=== PATIENT | male | born 1995 | race African-American/Black ===

== ENCOUNTER 2016-05-12 16:37 | Emergency (ER) | payer OTHER ==
[~2016-05-12] VITALS: Ht 167.6 cm; Wt 65.7 kg
[2016-05-12 16:56] VITALS: Ht 167.6 cm; Wt 65.7 kg
[2016-05-12 18:13] LABS: BASO % 0.6 %; BASO ABS # 0.03 K/uL (0-0.2); COMPLETE YES; EOS % 7.6 %; HEMATOCRIT 46.7 % (42-52); IG% 0.2 %; LYMPH % 30.8 %; LYMPH ABS # 1.58 K/uL (1.2-3.4); MEAN CELL VOLUME 86.3 fL (80-100); MEAN CORPUSCULAR HEMOGLOBIN 28.3 pg (25-34); MEAN CORPUSCULAR HGB CONC 32.8 g/dl (32-36); MEAN PLATELET VOLUME 10.5 fL (7.4-10.4); MONO % 8.8 %; PLATELET COUNT 227 K/uL (130-400); RED BLOOD COUNT 5.41 M/uL (4.7-6.1); WHITE BLOOD COUNT 5.13 K/uL (4.8-10.8)
[2016-05-12 18:33] LABS: CREATININE 1.1 mg/dl (0.60-1.40)
[2016-05-12 18:34] LABS: BUN/CREATININE RATIO 17.7 (10-20); CALCIUM 9.3 mg/dl (8.5-10.1); POTASSIUM 4.2 mmol/L (3.5-5.1)
--- NOTE | 2016-05-12 19:03 | EMERGENCY ROOM VISIT NOTE ---
History Report prepared by Alexey: rBe Mujica Under the Supervision of: Dr. Roseann Melara M.D. First contact with patient: 17:19 Chief Complaint: ILLNESS Stated Complaint: HEAD AND BODY CHILLS History of Present Illness The patient is a 20 year old male who presents to the Emergency Room with complaints of persistent diffuse chills over the past few days. He notes that the chills start in his head and radiate through his entire body. He also complains of a slight pressure sensation towards the top of his head. When he touches the area, he develops the chills through his body a few seconds later. The patient reports that he had a runny nose last week, but it has since resolved. He denies any other illnesses. Source of History: patient Onset: a few days CASE COORDINATOR Position: other (global) Quality: other (chills) Timing: other (persistent) Modifying Factors (Worsening): other (touching head) Note: Other symptoms: pressure in head Review of Systems See HPI for pertinent positives & negatives. A total of 10 systems reviewed and were otherwise negative. Past Medical & Surgical Medical Problems: (1) No Known Active Medical Problems Family History No pertinent family history stated. Social History Smoking Status: Never Smoker Marital Status: single Occupation Status: [employer] student Current/Historical Medications No Active Prescriptions or Reported Meds Allergies Coded Allergies: No Known Allergies (Unverified , 05/12/16) Physical Exam Vital Signs Date Time Temp Pulse Resp B/P Pulse Ox O2 Delivery O2 Flow Rate FiO2 05/12/16 16:56 36.7 88 18 126/79 98 Room Air Physical Exam CONSTITUTIONAL: No acute distress. HEENT: No icterus, moist mucous membranes NECK: No meningismus, trachea is midline. CARDIOVASCULAR: Regular rate, normal perfusion RESPIRATORY: Unlabored breathing. Clear to auscultation. GASTROINTESTINAL: Non-tender GENITOURINARY: No flank tenderness MUSCULOSKELETAL: Full range of motion NEUROLOGIC: No acute gross focal deficits. PSYCHIATRIC: Normal affect SKIN: Normal for ethnicity. Medical Decision & Procedures Laboratory Results 05/12/16 17:45 Red Blood Count 5.41, Mean Corpuscular Volume 86.3, Mean Corpuscular Hemoglobin 28.3, Mean Corpuscular Hemoglobin Concent 32.8, Mean Platelet Volume 10.5, Neutrophils (%) (Auto) 52.0, Lymphocytes (%) (Auto) 30.8, Monocytes (%) (Auto) 8.8, Eosinophils (%) (Auto) 7.6, Basophils (%) (Auto) 0.6, Neutrophils # (Auto) 2.67, Lymphocytes # (Auto) 1.58, Monocytes # (Auto) 0.45, Eosinophils # (Auto) 0.39, Basophils # (Auto) 0.03 05/12/16 17:45 Test 05/12/16 00:00 05/12/16 17:45 Influenza Type A Antigen Neg for Influ A (NEG) Influenza Type B Antigen Neg for Influ B (NEG) White Blood Count 5.13 K/uL (4.8-10.8) Red Blood Count 5.41 M/uL (4.7-6.1) Hemoglobin 15.3 g/dL (14.0-18.0) Hematocrit 46.7 % (42-52) Mean Corpuscular Volume 86.3 fL (80-100) Mean Corpuscular Hemoglobin 28.3 pg (25-34) Mean Corpuscular Hemoglobin Concent 32.8 g/dl (32-36) Platelet Count 227 K/uL (130-400) Mean Platelet Volume 10.5 fL (7.4-10.4) Neutrophils (%) (Auto) 52.0 % Lymphocytes (%) (Auto) 30.8 % Monocytes (%) (Auto) 8.8 % Eosinophils (%) (Auto) 7.6 % Basophils (%) (Auto) 0.6 % Neutrophils # (Auto) 2.67 K/uL (1.4-6.5) Lymphocytes # (Auto) 1.58 K/uL (1.2-3.4) Monocytes # (Auto) 0.45 K/uL (0.11-0.59) Eosinophils # (Auto) 0.39 K/uL (0-0.5) Basophils # (Auto) 0.03 K/uL (0-0.2) RDW Standard Deviation 40.6 fL (36.4-46.3) RDW Coefficient of Variation 12.8 % (11.5-14.5) Immature Granulocyte % (Auto) 0.2 % Immature Granulocyte # (Auto) 0.01 K/uL (0.00-0.02) Anion Gap 7.0 mmol/L (3-11) Est Creatinine Clear Calc Drug Dose 95.0 ml/min Estimated GFR () 109.9 Estimated GFR (Non- 94.8 BUN/Creatinine Ratio 17.7 (10-20) Calcium Level 9.3 mg/dl (8.5-10.1) Labs reviewed by ED physician. ED Course 1722: The patient was evaluated in room C4. A complete history and physical examination was performed. 1850: Upon reexamination the patient is resting comfortably. I discussed results and treatment plan with the patient. He verbalizes agreement and understanding. The patient is ready for discharge. Medical Decision Differential includes but is not limited to viral syndrome. 20-year-old presents into the emergency room for evaluation of upper respiratory infectious-related complaints. Physical exam benign. Patient concerned about subjective aches and chills and therefore screening laboratories were obtained and were subsequently normal. Patient appeared well prior to discharge at 6:45 PM Impression Primary Impression: Viral URI Scribe Attestation The scribe's documentation has been prepared under my direction and personally reviewed by me in its entirety. I confirm that the note above accurately reflects all work, treatment, procedures, and medical decision making performed by me. Departure Information Dispostion Home / Self-Care Prescriptions No Active Prescriptions or Reported Meds Referrals No Doctor, Assigned (PCP) Patient Instructions ED URI Viral, My [facility] Additional Instructions Aches and pains, take together every 6 hours: Tylenol 650mg Motrin 600mg Congestion: Afrin Nasal Mist Pseudoephedrine
[2016-05-12 19:22] VITALS: BP 114/72; PULSE 84; TEMP 36.7; O2SAT 99
== END 2016-05-12 19:18 | disposition home or self-care (01) ==
LOC: C.EDB 16:39 → C.EDC 19:18
DX: J06.9 Acute upper respiratory infection, unspecified (principal)